=== PATIENT | female | born 1955 | race Caucasian/White ===

== ENCOUNTER 2016-09-05 07:29 | Day surgery (SDC) | payer BC ==
[2016-09-05] MEDS ORDERED: D5 LR 1000 ML 1,000 ML IV ONE (07:46)
[2016-09-05] MEDS ORDERED: ZOFRAN INJ 4 MG VIAL ONE (09:44)
[2016-09-05] MEDS ORDERED: DIPRIVAN VIAL 20 ML ONE (09:44)
[2016-09-05 10:43] VITALS: BP 120/65
== END 2016-09-05 10:31 | disposition home or self-care (01) ==
LOC: SURG1 07:29
PROVIDERS: ATTEND Internal Medicine Gastroenterology
PROC: 0DBP8ZX Excision of Rectum, Via Natural or Artificial Opening Endoscopic, Diagnostic (ICD-10-PCS; principal; 2016-09-05 09:00)
PROC: 0DJD8ZZ Inspection of Lower Intestinal Tract, Via Natural or Artificial Opening Endoscopic (ICD-10-PCS; principal; 2016-09-05 09:00)
PROC: 0DBM8ZX Excision of Descending Colon, Via Natural or Artificial Opening Endoscopic, Diagnostic (ICD-10-PCS; principal; 2016-09-05 09:00)
DX: Z12.11 Encounter for screening for malignant neoplasm of colon (principal); K57.30 Diverticulosis of large intestine without perforation or abscess without bleeding; K64.8 Other hemorrhoids
CPT/HCPCS: A4217; J2405; J3490; J7120

== ENCOUNTER 2021-02-22 14:25 | Observation (INO) ==
[2021-02-22] MEDS ORDERED: TORADOL 30 MG VIAL IVP ONE (14:40)
[2021-02-22] MEDS ORDERED: TYLENOL 500 MG TAB EXTRA STRENGTH PO ONE ×2 (14:41→14:46)
[2021-02-22 14:42] VITALS: BMI 40.0
[2021-02-22] MEDS ORDERED: TORADOL 30 MG VIAL ONE (14:46)
[2021-02-22 15:01] LABS: ABG ALLEN TEST POS; ABG BASE EXCESS -0.3 mmol/L (-2.0-2.0); ABG HCO3 22.1 mmol/L (22-26)
--- NOTE | 2021-02-22 15:24 | DR.DIZZY ---
HPI Time seen Time Seen by Provider: 02/22/21 14:36 Complaint Chief Complaint Doctor Comments: 65 y/o female brought in by EMS for severe weakness. Pt with a h/o recurrent UTIs, last treated about 2 weeks ago. Pt is a poor historian, is weak and confused. Spouse reports pt started to worsen yesterday. developed severe weakness, fell at [employer]. Pt refused transport to the ER yesterday. Spouse got her home to her recliner, pt was unable to get out of it, EMS picked her up out of it today. Pt denies fever, chills. Has aa 103 degree temp on arrival. Admits to generalized weakness. Having urinary difficulties, only going small amounts. Urinated in her recliner today. Denies abdominal pain, nausea or vomiting. No report of diarrhea. Nurses Notes Reviewed Nurses Notes Review: Yes Context Stroke Symptoms: None PMH PMH Past Medical History: Yes Past Medical History Comment: Adult Stills disease, HTN, HLD, DM, recurrent UTIs Surgical History: Unknown Unable to Obtain Due To: Altered mental status Family History Family Medical History Comment: Unavailable Social History Does patient currently use any type of tobacco product: No Does any household member use tobacco: No Do you use any recreational Drugs:: No Travel Risk Coronavirus risk:travel/contact w/high risk person: No Has patient experienced Coronavirus symptoms: Yes Coronavirus symptoms experienced: Fever ROS Review of Systems Constitutional: Weakness Eyes: No Symptoms Reported ENTM: No Symptoms Reported Respiratoy: No Symptoms Reported Cardiovascular: No Symptoms Reported Gastrointestinal/Abdominal: No Symptoms Reported Genitourinary: Frequency Neurological: Weakness and Problems Walking Musculoskeletal: No Symptoms Reported Integumentary: No Symptoms Reported Hematologic/Lymphatic: No Symptoms Reported Endocrine: No Symptoms Reported Psychiatric: No Symptoms Reported PE Vital Signs Vitals: Temperature 97.7 F Pulse Rate 97 Respiratory Rate 12 Blood Pressure 119/63 O2 Sat by Pulse Oximetry 97 General Limitations: Altered Mental Status General Appearance: Alert and In No Apparent Distress Head Head Exam: Normal Inspection, Atraumatic and Normocephalic Eyes Eye exam: Normal Appearance and PERRL ENT ENT Exam: Normal Exam and Mucous Membranes Moist Neck Neck Exam: Normal Inspection and Full ROM; negative Meningismus Chest Chest Inspection: Normal Inspection Respiratory Respiratory Exam: Normal Lung Sounds Bilat; negative Accessory Muscle Use and Respiratory Distress Cardiovascular Cardiovascular Exam: Regular Rate, Normal Rhythm and Normal Heart Sounds Abdominal Exam Abdominal Exam: Normal Inspection, Normal Bowel Sounds and Soft; negative Tenderness, Guarding and Rebound Extremeties Extremities Exam: Normal Inspection; negative Edema Back Back Exam: Normal Inspection; negative (R) CVA Tenderness and (L) CVA Tenderness Neurologic Neurological Exam: Other (Appears a bit confused, gets tired with talking.); negative Motor Sensory Deficit MDM Differential Diagnosis Differential Diagnosis Comment: UTI, urosepsis, dehydration, electrolyte abnormalities COURSE Treatment Treatment: Pt with 103 temp, generalized weakness. W/u initiated. Given IV fluids, po tylenol, IV toradol. 1640 - U/A with TNTC WBCs c/w UTI. Labs are other boykin acceptable. Will treat with IV levaquin, IV fluids, and admit. Discussed with Dr. Kingston, accepts the admission. ROR Labs Reviewed Laboratory Results Reviewed?: Yes Result Diagrams: 02/22/21 15:05 02/22/21 15:05 Laboratory: WBC 10.2 X10^3/uL (3.6-10.0) H 02/22/21 15:05 RBC 3.13 X10^6/uL (3.5-5.4) L 02/22/21 15:05 Hgb 9.2 g/dL (12.0-16.0) L 02/22/21 15:05 Hct 27.4 % (36.0-47.0) L 02/22/21 15:05 MCV 87.5 fL (80.0-100.0) 02/22/21 15:05 MCH 29.3 pg (27.0-34.0) 02/22/21 15:05 MCHC 33.5 g/dL (33.0-35.0) 02/22/21 15:05 RDW 22.8 % (11.6-16.5) H 02/22/21 15:05 Plt Count 286 X10^3/uL (150.0-450.0) 02/22/21 15:05 Plt Count Comment Adequate (ADEQUATE) 02/22/21 15:05 MPV 6.7 fL (7.4-11.0) L 02/22/21 15:05 Neut % (Auto) 83.3 % (42.0-75.0) H 02/22/21 15:05 Lymph % (Auto) 7.3 % (21.0-51.0) L 02/22/21 15:05 [place] % (Auto) 8.3 % (0.0-13.0) 02/22/21 15:05 Eos % (Auto) 0.3 % (0.9-2.9) L 02/22/21 15:05 Baso % (Auto) 0.8 % (0.2-1.0) 02/22/21 15:05 Neut # (Auto) 8.5 x10^3/uL (2.2-4.8) H 02/22/21 15:05 Lymph # (Auto) 0.7 X10^3/uL (1.3-2.9) L 02/22/21 15:05 [place] # (Auto) 0.8 x10^3/uL (0.3-0.8) 02/22/21 15:05 Eos # (Auto) 0.0 x10^3/uL (0.0-0.2) 02/22/21 15:05 Baso # (Auto) 0.1 X10^3/uL (0.0-0.1) 02/22/21 15:05 Absolute Nucleated RBC 0.1 /100WBC 02/22/21 15:05 Plt Morphology Comment Normal (NORMAL) 02/22/21 15:05 RBC Morphology Abnormal (NORMAL) A 02/22/21 15:05 Anisocytosis 2+ A 02/22/21 15:05 Sample Site Rra 02/22/21 14:58 ABG pH 7.490 (7.35-7.45) H 02/22/21 14:58 ABG pCO2 29.0 mmHg (35.0-45.0) L 02/22/21 14:58 ABG pO2 81.0 mmHg (80.0-100.0) 02/22/21 14:58 ABG HCO3 22.1 mmol/L (22-26) 02/22/21 14:58 ABG O2 Saturation 97.0 % (90-100) 02/22/21 14:58 ABG Base Excess -0.3 mmol/L (-2.0-2.0) 02/22/21 14:58 Tomi Test Pos 02/22/21 14:58 A-a Gradient 32.0 mmHg 02/22/21 14:58 FiO2 21.0 02/22/21 14:58 Blood Gas Comments Pt cathryn well eb 02/22/21 14:58 Sodium 131 mmol/L (136-145) L 02/22/21 15:05 Corrected Sodium 133 mmol/L (136-145) L 02/22/21 15:05 Potassium 4.1 mmol/L (3.5-5.1) 02/22/21 15:05 Chloride 95 mmol/L (98-107) L 02/22/21 15:05 Carbon Dioxide 24.0 mmol/L (21-32) 02/22/21 15:05 BUN 22 mg/dL (7-18) H 02/22/21 15:05 Creatinine 1.48 mg/dL (0.55-1.02) H 02/22/21 15:05 Est GFR (MDRD) Af Amer 46 (>60) L 02/22/21 15:05 Est GFR (MDRD) Non-Af 38 (>60) L 02/22/21 15:05 Glucose 167 mg/dL (65-99) H 02/22/21 15:05 Lactic Acid 1.9 mmol/L (0.4-2.0) 02/22/21 14:55 Calcium 8.5 mg/dL (8.5-10.1) 02/22/21 15:05 Corrected Calcium 9.2 mg/dL (8.5-10.1) 02/22/21 15:05 Total Bilirubin 0.50 mg/dL (0.2-1.0) 02/22/21 15:05 AST 14 Units/L (15-37) L 02/22/21 15:05 ALT 19 Units/L (12-78) 02/22/21 15:05 Alkaline Phosphatase 99 Units/L (46-116) 02/22/21 15:05 Creatine Kinase 62 Units/L (26-192) 02/22/21 15:05 CK-MB (CK-2) < 1.0 ng/mL (0-4.0) 02/22/21 15:05 CK/CKMB % Calc 1.6 % (<4) 02/22/21 15:05 Troponin I < 0.02 ng/mL (0-1.5) 02/22/21 15:05 Total Protein 7.7 g/dL (6.4-8.2) 02/22/21 15:05 Albumin 3.1 g/dL (3.4-5.0) L 02/22/21 15:05 Globulin 4.6 g/dL (2.5-4.5) H 02/22/21 15:05 Albumin/Globulin Ratio 0.7 Ratio (1.1-2.1) L 02/22/21 15:05 Lipase 68 Units/L (73-393) L 02/22/21 15:05 Specimen Type Clean catch urine 02/22/21 15:33 Urine Color Straw (YELLOW) 02/22/21 15: Urine Appearance Cloudy (CLEAR) 02/22/21 15:33 Urine pH 5.0 (5.0 - 8.0) 02/22/21 15:33 Ur Specific [place] 1.020 (1.000-1.030) 02/22/21 15:33 Urine Protein 4+ (NEGATIVE) 02/22/21 15:33 Urine Glucose (UA) Negative (NEGATIVE) 02/22/21 15:33 Urine Ketones 1+ (NEGATIVE) 02/22/21 15:33 Urine Occult Blood 4+ (NEGATIVE) 02/22/21 15:33 Urine Nitrite Negative (NEGATIVE) 02/22/21 15:33 Urine Bilirubin Negative (NEGATIVE) 02/22/21 15:33 Urine Urobilinogen Normal (NORMAL) 02/22/21 15:33 Ur Leukocyte Esterase 3+ (NEGATIVE) 02/22/21 15:33 Urine RBC 3-5 /HPF (0-3) A 02/22/21 15:33 Urine WBC Tntc /HPF (0-5) A 02/22/21 15:33 Ur Squamous Epith Cells Few /HPF (NEGATIVE) 02/22/21 15:33 Urine Bacteria 2+ /HPF (NEGATIVE) 02/22/21 15:33 Ur Culture Indicated? Yes/culture set up 02/22/21 15:33 SARS-CoV-2 (PCR) Negative (NEGATIVE) 02/22/21 14:37 Influenza Type A (PCR) Negative (NEGATIVE) 02/22/21 14:37 Influenza Type B (PCR) Negative (NEGATIVE) 02/22/21 14:37 RSV (PCR) Negative (NEGATIVE) 02/22/21 14:37 Other Results Comments: U/A with TNTC WBCs. + mild anemia. Opioid Opioid Risk Tool Total: 0 Total Score Risk Category: Low Risk Copyright: [employer] predicting aberrant behaviors Diagnosis Discharge Problem: Generalized weakness Urinary tract infection Qualifiers: Urinary tract infection type: site unspecified
[2021-02-22 15:27] LABS: BASOPHILS # (AUTO) 0.1 X10^3/uL (0.0-0.1); BASOPHILS % (AUTO) 0.8 % (0.2-1.0); EOSINOPHILS % (AUTO) 0.3 % (0.9-2.9); HEMATOCRIT 27.4 % (36.0-47.0); HEMOGLOBIN 9.2 g/dL (12.0-16.0); LYMPHOCYTES # (AUTO) 0.7 X10^3/uL (1.3-2.9); LYMPHOCYTES % (AUTO) 7.3 % (21.0-51.0); MEAN CORPUSCULAR HEMOGLOBIN 29.3 pg (27.0-34.0); MEAN CORPUSCULAR HGB CONC 33.5 g/dL (33.0-35.0); MEAN CORPUSCULAR VOLUME 87.5 fL (80.0-100.0); MEAN PLATELET VOLUME 6.7 fL (7.4-11.0); MONOCYTES # (AUTO) 0.8 x10^3/uL (0.3-0.8); MONOCYTES % (AUTO) 8.3 % (0.0-13.0); NEUTROPHILS # (AUTO) 8.5 x10^3/uL (2.2-4.8); NEUTROPHILS % (AUTO) 83.3 % (42.0-75.0); PLATELET COUNT 286 X10^3/uL (150.0-450.0); RED BLOOD COUNT 3.13 X10^6/uL (3.5-5.4); RED CELL DISTRIBUTION WIDTH 22.8 % (11.6-16.5); WHITE BLOOD COUNT 10.2 X10^3/uL (3.6-10.0)
[2021-02-22 15:44] LABS: BILIRUBIN,URINE NEGATIVE (NEGATIVE); BLOOD/HEMOGLOBIN,URINE 4+ (NEGATIVE); GLUCOSE, URINE NEGATIVE (NEGATIVE); KETONES,URINE 1+ (NEGATIVE); LEUKOCYTE ESTERASE ,URINE 3+ (NEGATIVE); NITRITES,URINE NEGATIVE (NEGATIVE); PROTEIN,URINE 4+ (NEGATIVE); UROBILINOGEN,URINE NORMAL (NORMAL)
[2021-02-22 15:58] LABS: APPEARANCE,URINE CLOUDY (CLEAR); BACTERIA,URINE 2+ /HPF (NEGATIVE); COLOR,URINE STRAW (YELLOW); SQUAMOUS EPITHELIAL CELL,UR FEW /HPF (NEGATIVE)
[2021-02-22] MEDS ORDERED: LEVAQUIN PREMIX IV 750 MG 750 MG/150 ML BAG IV ONE ×2 (16:42→16:55)
[2021-02-22 16:50] LABS: ALANINE AMINOTRANSFERASE 19 Units/L (12-78); ALBUMIN 3.1 g/dL (3.4-5.0); ALKALINE PHOSPHATASE 99 Units/L (46-116); ASPARTATE AMINO TRANSFERASE 14 Units/L (15-37); BLOOD UREA NITROGEN 22 mg/dL (7-18); CALCIUM 8.5 mg/dL (8.5-10.1); CHLORIDE 95 mmol/L (98-107); CKMB % 1.6 % (<4); COR CA(FOR HYPOALB) 9.2 mg/dL (8.5-10.1); COR NA(FOR HYPERGLY) 133 mmol/L (136-145); CREATINE KINASE 62 Units/L (26-192); CREATINE KINASE MB < 1.0 ng/mL (0-4.0); CREATININE 1.48 mg/dL (0.55-1.02); LIPASE 68 Units/L (73-393); SODIUM 131 mmol/L (136-145); TOTAL PROTEIN 7.7 g/dL (6.4-8.2); TROPONIN I < 0.02 ng/mL (0-1.5); eGFR NON BLACK RACES 38 (>60)
[2021-02-22 17:01] LABS: ANISOCYTOSIS 2+; PLATELET MORPHOLOGY COMMENT NORMAL (NORMAL)
[2021-02-22] MEDS ORDERED: D5 1/2 NS 1000 ML 1,000 ML IV ONE (18:58)
[2021-02-22] MEDS: D5 1/2 NS 1000 ML 1,000 ML IV SCH (19:00)
[2021-02-22] MEDS ORDERED: NEURONTIN TAB 600 MG ONE (20:47)
[2021-02-22] MEDS: NEURONTIN TAB 600 MG PO SCH (20:52)
[2021-02-22] MEDS ORDERED: DULOXETINE 20 MG PO SCH (21:00)
[2021-02-23] MEDS ORDERED: D5 1/2 NS 1000 ML 1,000 ML IV ONE (02:19)
[2021-02-23] MEDS: D5 1/2 NS 1000 ML 1,000 ML IV SCH (02:22)
[2021-02-23 05:44] LABS: ALBUMIN 2.8 g/dL (3.4-5.0); BASOPHILS % (AUTO) 0.3 % (0.2-1.0); CREATININE 1.78 mg/dL (0.55-1.02); EOSINOPHILS % (AUTO) 0.3 % (0.9-2.9); HEMATOCRIT 25.1 % (36.0-47.0); HEMOGLOBIN 8.5 g/dL (12.0-16.0); LYMPHOCYTES # (AUTO) 0.5 X10^3/uL (1.3-2.9); LYMPHOCYTES % (AUTO) 5.9 % (21.0-51.0); MEAN CORPUSCULAR HEMOGLOBIN 29.3 pg (27.0-34.0); MEAN CORPUSCULAR HGB CONC 33.7 g/dL (33.0-35.0); MEAN PLATELET VOLUME 6.9 fL (7.4-11.0); MONOCYTES # (AUTO) 0.7 x10^3/uL (0.3-0.8); MONOCYTES % (AUTO) 9.8 % (0.0-13.0); NEUTROPHILS # (AUTO) 6.4 x10^3/uL (2.2-4.8); NEUTROPHILS % (AUTO) 83.7 % (42.0-75.0); PLATELET COUNT 276 X10^3/uL (150.0-450.0); RED BLOOD COUNT 2.89 X10^6/uL (3.5-5.4); RED CELL DISTRIBUTION WIDTH 22.9 % (11.6-16.5); TOTAL PROTEIN 7.1 g/dL (6.4-8.2); WHITE BLOOD COUNT 7.6 X10^3/uL (3.6-10.0)
[2021-02-23 06:09] LABS: ANISOCYTOSIS 2+; PLATELET MORPHOLOGY COMMENT NORMAL (NORMAL)
[2021-02-23] MEDS ORDERED: LOTENSIN TAB 10 MG ONE (07:05)
[2021-02-23] MEDS ORDERED: LEVAQUIN PREMIX IV 750 MG 750 MG/150 ML BAG IV ONE (07:05)
[2021-02-23] MEDS ORDERED: HYDROCHLOROTHIAZIDE 25 MG TAB ONE (07:05)
[2021-02-23] MEDS ORDERED: ASPIRIN EC 81 MG PO ONE (07:08)
[2021-02-23] MEDS ORDERED: GLUCOPHAGE ONE (07:08)
[2021-02-23] MEDS ORDERED: PriLOSEC PO ONE (07:09)
[2021-02-23 08:11] LABS: MAGNESIUM 1.6 mg/dL (1.7-2.9)
[2021-02-23] MEDS: ASPIRIN EC 81 MG PO SCH (08:12)
[2021-02-23] MEDS: GLUCOPHAGE PO SCH (08:13)
[2021-02-23] MEDS: CYMBALTA PO SCH (08:13)
[2021-02-23] MEDS: PriLOSEC PO SCH (08:14)
[2021-02-23] MEDS: LOTENSIN TAB 10 MG PO SCH (08:14)
[2021-02-23] MEDS ORDERED: NS 1000 ML 1,000 ML ONE (08:15)
[2021-02-23] MEDS: NS 1000 ML 1,000 ML IV SCH ×2 (08:15→22:07)
[2021-02-23 08:17] LABS: HEMOGLOBIN A1C 7.5 %
[2021-02-23] MEDS ORDERED: LEVAQUIN PREMIX IV 750 MG 750 MG/150 ML BAG IV SCH (09:00)
[2021-02-23] MEDS ORDERED: HYDROCHLOROTHIAZIDE 12.5 MG CAP PO SCH (09:00)
[2021-02-23] MEDS ORDERED: ASPIRIN 81 MG PO SCH (09:00)
[2021-02-23] MEDS ORDERED: BENAZEPRIL HYDROCHLOROTHIAZIDE PO SCH (09:00)
--- NOTE | 2021-02-23 09:12 | RAD ---
HISTORYWeakness no chest complaintsSTUDYAP chestCOMPARISONNoneFINDINGSThe heart is not enlarged. There is a retrocardiac density consistent with hiatal hernia. There is an indistinct area of increased pulmonary density over the right apex and upper lobe. The lungs are clear otherwise. No pleural fluid is seen.IMPRESSIONLarge hiatal hernia. The described density in the right upper lobe may be technical artifact or related to airspace process or fibrosis. There is no prior exam currently available for comparison. Follow-up recommended standard PA and lateral views if possible, to confirm or exclude significant abnormality.Electronically signed by: MARIA ESTHER FERNANDES (Feb 23, 2021 09:10:23)
[2021-02-23] MEDS ORDERED: NORCO 5/325 MG TAB ONE (10:07)
[2021-02-23] MEDS: NORCO 5/325 MG TAB PO PRN (10:18)
[2021-02-23] MEDS ORDERED: PREDNISONE TAB 5 MG PO SCH (11:00)
[2021-02-23] MEDS: PATIENT'S HOME MEDICATION PO SCH (11:51)
--- NOTE | 2021-02-23 13:03 | DR.H&P ---
H&P - History & Physical for Day of: H&P Date: 02/22/21 - Chief Complaint Chief Complaint: FEVER, WEAKNESS AND DEHYDRATION. UTI, DIARRHEA - History of Present Illness History of Present Illness: 65 y/o female brought in by EMS for severe weakness. Pt with a h/o recurrent UTIs, last treated about 2 weeks ago. Pt is a poor historian, is weak and confused. Spouse reports pt started to worsen yesterday. developed severe weakness, fell at [facility]. Pt refused transport to the ER yesterday. Spouse got her home to her recliner, pt was unable to get out of it, EMS picked her up out of it today. Pt denies fever, chills. Has aa 103 degree temp on arrival. Admits to generalized weakness. Having urinary difficulties, only going small amounts. Urinated in her recliner today. Denies abdominal pain, nausea or vomiting. No report of diarrhea. - Past Medical History Past Medical History: Diabetes, Dyslipidemia, Hypertension - Past Surgical History Surgical History: , Cholecystectomy, Other - Family History Family Medical History: Hypertension - Social History Does patient currently use any type of tobacco product: No Have you used tobacco products in the last 12 months: No Type of Tobacco Use: None Does any household member use tobacco: No Alcohol Use: None Drug Use: None - Medications Home Medications: No Known Drug Allergies Allergy (Verified 02/22/21 17:11) CONTINUE taking the following medications azelastine 2 spray INTRANASAL BID PRN 02/22/21 [History] benazepril-hydrochlorothiazide 1 tab PO DAILY 02/22/21 [History] glimepiride 2 mg PO BID 02/22/21 [History] metformin 1,000 mg PO QAM 02/22/21 [History] metformin 500 mg PO QHS 02/22/21 [History] prednisone 2 mg PO DAILY 02/22/21 [History] - Review of Systems Constitutional: Fever, Chills, Weakness, Malaise Eyes: No Symptoms Reported ENT: No Symptoms Reported Respiratory: No Symptoms Reported Cardiovascular: Edema Gastrointestinal: Nausea, Vomiting, Abdominal Pain, Diarrhea Genitourinary: Incontinence Musculoskeletal: Back Pain Skin: No Symptoms Reported Neurological: Weakness, Confusion (PREVIOUS CONFUSION WITH FEVER) - Physical Exam Vital Signs: Temperature 99.3 F Pulse Rate [Right Radial] 110 Pulse Rate 105 Respiratory Rate 20 Blood Pressure [Right Arm] 162/67 Blood Pressure 141/65 O2 Sat by Pulse Oximetry 97 Oriented: Normal Eyes: Normal Ear: Normal Nose: Normal Throat: Dry Respiratory: RLL Diminished, LLL Diminished Cardiovascular: Tachycardia, Edema : Normal Auscultation: Bowel Sounds: Normal Palpation: Normal Tenderness: RLQ, LLQ Skin: Decreased Turgur Musculoskeletal: Back:Thoracic, Back:Lumbar Psychiatric: Normal Mood Description: Calm, Anxious Affect: Anxious Speech Pattern: Clear - Assessment/Plan (1) Pyelonephritis Status: Acute Plan: ADMIT, BLOOD AND URINE CULTURE. IV HYDRATION, IV ATBX, PAIN AND NAUSEA CONTROL. SOOD WITH STRICT I&OS. VERIFY HOME MEDICATIONS. CT ABD/ PELVIS (2) Fever Status: Acute (3) Dehydration Status: Acute - Allergies Allergies/Adverse Reactions: Allergies Allergy/AdvReac Type Severity Reaction Status Date / Time No Known Drug Allergies Allergy Verified 02/22/21 17:11
--- NOTE | 2021-02-23 13:41 | CT ---
HISTORYUTI WITH FAILED OUTPATIENT TREATMENTSTUDYCT abdomen pelvis with IV contrastCOMPARISONNoneTECHNIQUEMultiple axial images of the abdomen and pelvis were obtained from the lung bases to the pubic symphysis without the administration of IV contrast. Dose reduction techniques including Automated Exposure Control (AEC) and adjustment of mA and kV were utilized.FINDINGSThe visualized portions of the lung bases suggest mild atelectasis associated with the large paraesophageal hernia.Fatty infiltration of the liver and borderline hepatomegaly. Spleen appears normal in size.Gallbladder is not well distended without obvious abnormality. No biliary ductal dilation.No pancreatic abnormality is seen.The adrenal glands appear normal.Mild perinephric streaky densities are seen, right greater than left. There is slight indistinctness of the lower pole of the right kidney which could be from pyelonephritis but may be due to mottle artifact. No nephrolithiasis or hydronephrosis is seen. No suggestion of an abscess is seen. Phleboliths are seen in the pelvis. No ureteral dilation is seen. Bladder is decompressed with a Kinsey catheter and not evaluated.Mild sigmoid and descending colon diverticula are seen without evidence of diverticulitis. No suggestion of colitis or constipation. There is a moderate to large paraesophageal hernia. Mild jejunitis is not excluded. No evidence of bowel obstruction. Normal appendix is seen.No adnexal masses are seen.Abdominal aorta is normal in size.Shotty reactive mesenteric and retroperitoneal lymph nodes are seen.No free intraperitoneal air or fluid is seen.No pars defect is seen but there is mild anterolisthesis of L4 on L5. There is large central disc extrusion or protrusion at L4-5 with prominent thecal sac effacement and probable compression of the L5 nerve roots in the lateral recesses.IMPRESSIONPossible mild changes of pyelonephritis in the right kidney. No obstruction is seen.Moderate to large-sized paraesophageal hernia is seen.Mild jejunitis changes are not excluded.Large central disc extrusion or protrusion at L4-5 likely causes prominent thecal sac effacement and prominent lateral recess stenosis.Electronically signed by: Noah Yoder (Feb 23, 2021 13:38:35)
[2021-02-23] MEDS: ZOFRAN INJ 4 MG VIAL IVP PRN ×2 (15:10→20:43)
[2021-02-23] MEDS: NEURONTIN TAB 600 MG PO SCH (20:42)
[2021-02-23] MEDS: MAGNESIUM SULFATE 1 GRAM/100 mL PREMIX 1 G/100 ML BAG IV PRN ×2 (22:09→23:10)
[2021-02-24] MEDS: NORCO 5/325 MG TAB PO PRN (06:27)
[2021-02-24 06:35] LABS: BASOPHILS % (AUTO) 0.5 % (0.2-1.0); EOSINOPHILS # (AUTO) 0.1 x10^3/uL (0.0-0.2); EOSINOPHILS % (AUTO) 1.4 % (0.9-2.9); HEMOGLOBIN 8.4 g/dL (12.0-16.0); LYMPHOCYTES # (AUTO) 0.6 X10^3/uL (1.3-2.9); LYMPHOCYTES % (AUTO) 8.6 % (21.0-51.0); MEAN CORPUSCULAR HEMOGLOBIN 29.4 pg (27.0-34.0); MEAN CORPUSCULAR HGB CONC 33.5 g/dL (33.0-35.0); MEAN CORPUSCULAR VOLUME 87.7 fL (80.0-100.0); MEAN PLATELET VOLUME 7.1 fL (7.4-11.0); MONOCYTES # (AUTO) 1.2 x10^3/uL (0.3-0.8); MONOCYTES % (AUTO) 16.1 % (0.0-13.0); NEUTROPHILS # (AUTO) 5.4 x10^3/uL (2.2-4.8); NEUTROPHILS % (AUTO) 73.4 % (42.0-75.0); PLATELET COUNT 305 X10^3/uL (150.0-450.0); RED BLOOD COUNT 2.85 X10^6/uL (3.5-5.4); RED CELL DISTRIBUTION WIDTH 23.7 % (11.6-16.5); WHITE BLOOD COUNT 7.3 X10^3/uL (3.6-10.0)
[2021-02-24 06:47] LABS: ALBUMIN 2.6 g/dL (3.4-5.0); CALCIUM 8.4 mg/dL (8.5-10.1); CARBON DIOXIDE 22.4 mmol/L (21-32); COR CA(FOR HYPOALB) 9.5 mg/dL (8.5-10.1); CREATININE 1.28 mg/dL (0.55-1.02); MAGNESIUM 1.9 mg/dL (1.7-2.9); TOTAL PROTEIN 6.9 g/dL (6.4-8.2)
[2021-02-24 07:21] LABS: ANISOCYTOSIS 2+; PLATELET MORPHOLOGY COMMENT NORMAL (NORMAL)
[2021-02-24] MEDS ORDERED: GLUCOPHAGE ONE (09:16)
[2021-02-24] MEDS: ASPIRIN EC 81 MG PO SCH (09:35)
[2021-02-24] MEDS: CYMBALTA PO SCH (09:45)
[2021-02-24] MEDS: GLUCOPHAGE PO SCH (09:46)
[2021-02-24] MEDS: PriLOSEC PO SCH (09:46)
[2021-02-24] MEDS: LOTENSIN TAB 10 MG PO SCH (09:46)
[2021-02-24] MEDS: PATIENT'S HOME MEDICATION PO SCH (10:25)
[2021-02-24] MEDS: NS 1000 ML 1,000 ML IV SCH (12:11)
[2021-02-24] MEDS: ZOFRAN INJ 4 MG VIAL IVP PRN (14:44)
--- NOTE | 2021-02-24 16:14 | PCM.PROG ---
Progress Note Progress Note for Day of Date of Exam: 02/24/21 Subjective Subjective: Feeling better overall. Past Medical Family Social History Past Med/Fam/Surg Hx: No changes since H&P Allergies: Allergies No Known Drug Allergies Allergy (Verified 02/22/21 17:11) Review of Systems ROS: No change since H&P Vital Signs and I&O's Vital Signs: Temperature 97.7 F Pulse Rate [Right Radial] 110 Pulse Rate 76 Respiratory Rate 20 Blood Pressure [Right Arm] 162/67 Blood Pressure 119/55 O2 Sat by Pulse Oximetry 94 Intake and Output: Intake & Output 02/22/21 02/23/21 02/24/21 02/25/21 11:59 11:59 11:59 11:59 Intake Total 1670 / 1670 1981 / 1981 Output Total 550 / 550 1325 / 1325 Balance 1120 / 1120 657 / 657 Physical Exam Oriented: Normal Eyes: Normal Throat: Normal Respiratory: Normal Cardiovascular: Normal and Edema Auscultation: Bowel Sounds: Normal Tenderness: RLQ and LLQ Skin: Decreased Turgur Musculoskeletal: Back:Thoracic and Back:Lumbar Psychiatric: Normal Mood Description: Calm and Anxious Affect: Anxious Speech Pattern: Clear and Appropriate Laboratory and Diagnostics Result Diagrams: 02/24/21 05:18 02/24/21 05:18 Labs: 02/22/21 15:05 Blood Blood Culture - Preliminary 02/22/21 14:55 Blood Blood Culture - Preliminary 02/22/21 15:33 Urine,Clean Catch Urine Culture - Preliminary Laboratory WBC 7.3 X10^3/uL (3.6-10.0) 02/24/21 05:18 RBC 2.85 X10^6/uL (3.5-5.4) L 02/24/21 05:18 Hgb 8.4 g/dL (12.0-16.0) L 02/24/21 05:18 Hct 25.0 % (36.0-47.0) L 02/24/21 05:18 MCV 87.7 fL (80.0-100.0) 02/24/21 05:18 MCH 29.4 pg (27.0-34.0) 02/24/21 05:18 MCHC 33.5 g/dL (33.0-35.0) 02/24/21 05:18 RDW 23.7 % (11.6-16.5) H 02/24/21 05:18 Plt Count 305 X10^3/uL (150.0-450.0) 02/24/21 05:18 Plt Count Comment Adequate (ADEQUATE) 02/24/21 05:18 MPV 7.1 fL (7.4-11.0) L 02/24/21 05:18 Neut % (Auto) 73.4 % (42.0-75.0) 02/24/21 05:18 Lymph % (Auto) 8.6 % (21.0-51.0) L 02/24/21 05:18 [place] % (Auto) 16.1 % (0.0-13.0) H 02/24/21 05:18 Eos % (Auto) 1.4 % (0.9-2.9) 02/24/21 05:18 Baso % (Auto) 0.5 % (0.2-1.0) 02/24/21 05:18 Neut # (Auto) 5.4 x10^3/uL (2.2-4.8) H 02/24/21 05:18 Lymph # (Auto) 0.6 X10^3/uL (1.3-2.9) L 02/24/21 05:18 [place] # (Auto) 1.2 x10^3/uL (0.3-0.8) H 02/24/21 05:18 Eos # (Auto) 0.1 x10^3/uL (0.0-0.2) 02/24/21 05:18 Baso # (Auto) 0.0 X10^3/uL (0.0-0.1) 02/24/21 05:18 Absolute Nucleated RBC 0.1 /100WBC 02/24/21 05:18 Plt Morphology Comment Normal (NORMAL) 02/24/21 05:18 RBC Morphology Abnormal (NORMAL) A 02/24/21 05:18 Anisocytosis 2+ A 02/24/21 05:18 Sample Site Rra 02/22/21 14:58 ABG pH 7.490 (7.35-7.45) H 02/22/21 14:58 ABG pCO2 29.0 mmHg (35.0-45.0) L 02/22/21 14:58 ABG pO2 81.0 mmHg (80.0-100.0) 02/22/21 14:58 ABG HCO3 22.1 mmol/L (22-26) 02/22/21 14:58 ABG O2 Saturation 97.0 % (90-100) 02/22/21 14:58 ABG Base Excess -0.3 mmol/L (-2.0-2.0) 02/22/21 14:58 Tomi Test Pos 02/22/21 14:58 A-a Gradient 32.0 mmHg 02/22/21 14:58 FiO2 21.0 02/22/21 14:58 Blood Gas Comments Pt cathryn well eb 02/22/21 14:58 Sodium 132 mmol/L (136-145) L 02/24/21 05:18 Corrected Sodium 132 mmol/L (136-145) L 02/24/21 05:18 Potassium 3.7 mmol/L (3.5-5.1) 02/24/21 05:18 Chloride 98 mmol/L (98-107) 02/24/21 05:18 Carbon Dioxide 22.4 mmol/L (21-32) 02/24/21 05:18 BUN 17 mg/dL (7-18) 02/24/21 05:18 Creatinine 1.28 mg/dL (0.55-1.02) H 02/24/21 05:18 Est GFR (MDRD) Af Amer 54 (>60) L 02/24/21 05:18 Est GFR (MDRD) Non-Af 45 (>60) L 02/24/21 05:18 Glucose 112 mg/dL (65-99) H 02/24/21 05:18 POC Glucose (mg/dL) 149 mg/dL (65-99) H 02/24/21 15:46 Hemoglobin A1c 7.5 % 02/23/21 05:11 Lactic Acid 1.9 mmol/L (0.4-2.0) 02/22/21 14:55 Calcium 8.4 mg/dL (8.5-10.1) L 02/24/21 05:18 Corrected Calcium 9.5 mg/dL (8.5-10.1) 02/24/21 05:18 Magnesium 1.9 mg/dL (1.7-2.9) 02/24/21 05:18 Iron 8 ug/dL (50-175) L 02/23/21 05:11 Transferrin 247 mg/dL (202-364) 02/23/21 05:11 Ferritin 147 ng/mL (8-252) 02/23/21 05:11 Total Bilirubin 0.30 mg/dL (0.2-1.0) 02/24/21 05:18 AST 40 Units/L (15-37) H 02/24/21 05:18 ALT 27 Units/L (12-78) 02/24/21 05:18 Alkaline Phosphatase 82 Units/L (46-116) 02/24/21 05:18 Creatine Kinase 62 Units/L (26-192) 02/22/21 15:05 CK-MB (CK-2) < 1.0 ng/mL (0-4.0) 02/22/21 15:05 CK/CKMB % Calc 1.6 % (<4) 02/22/21 15:05 Troponin I < 0.02 ng/mL (0-1.5) 02/22/21 15:05 Total Protein 6.9 g/dL (6.4-8.2) 02/24/21 05:18 Albumin 2.6 g/dL (3.4-5.0) L 02/24/21 05:18 Globulin 4.3 g/dL (2.5-4.5) 02/24/21 05:18 Albumin/Globulin Ratio 0.6 Ratio (1.1-2.1) L 02/24/21 05:18 Lipase 68 Units/L (73-393) L 02/22/21 15:05 Vitamin B12 438 pg/mL (193-986) 02/23/21 05:11 Folate 17.8 ng/mL (>8.6) 02/23/21 05:11 Specimen Type Clean catch urine 02/22/21 15:33 Urine Color Straw (YELLOW) 02/22/21 15:33 Urine Appearance Cloudy (CLEAR) 02/22/21 15:33 Urine pH 5.0 (5.0 - 8.0) 02/22/21 15:33 Ur Specific [place] 1.020 (1.000-1.030) 02/22/21 15:33 Urine Protein 4+ (NEGATIVE) 02/22/21 15:33 Urine Glucose (UA) Negative (NEGATIVE) 02/22/21 15:33 Urine Ketones 1+ (NEGATIVE) 02/22/21 15:33 Urine Occult Blood 4+ (NEGATIVE) 02/22/21 15:33 Urine Nitrite Negative (NEGATIVE) 02/22/21 15:33 Urine Bilirubin Negative (NEGATIVE) 02/22/21 15:33 Urine Urobilinogen Normal (NORMAL) 02/22/21 15:33 Ur Leukocyte Esterase 3+ (NEGATIVE) 02/22/21 15:33 Urine RBC 3-5 /HPF (0-3) A 02/22/21 15:33 Urine WBC Tntc /HPF (0-5) A 02/22/21 15:33 Ur Squamous Epith Cells Few /HPF (NEGATIVE) 02/22/21 15:33 Urine Bacteria 2+ /HPF (NEGATIVE) 02/22/21 15:33 Ur Culture Indicated? Yes/culture set up 02/22/21 15:33 SARS-CoV-2 (PCR) Negative (NEGATIVE) 02/22/21 14:37 Influenza Type A (PCR) Negative (NEGATIVE) 02/22/21 14:37 Influenza Type B (PCR) Negative (NEGATIVE) 02/22/21 14:37 RSV (PCR) Negative (NEGATIVE) 02/22/21 14:37 Radiology Reviewed: Yes Plan (1) Anemia: Status: Acute Plan: Check anemia profile. (2) Pyelonephritis: Status: Acute Plan: Continue IV Levaquin. (3) Fever: Status: Acute (4) Dehydration: Status: Acute Plan: Continue IV hydration.
[2021-02-24] MEDS: NEURONTIN TAB 600 MG PO SCH (20:42)
[2021-02-25] MEDS: NS 1000 ML 1,000 ML IV SCH (02:22)
[2021-02-25 06:50] LABS: BASOPHILS # (AUTO) 0.1 X10^3/uL (0.0-0.1); BASOPHILS % (AUTO) 0.7 % (0.2-1.0); EOSINOPHILS # (AUTO) 0.3 x10^3/uL (0.0-0.2); EOSINOPHILS % (AUTO) 3.6 % (0.9-2.9); HEMATOCRIT 25.8 % (36.0-47.0); HEMOGLOBIN 8.6 g/dL (12.0-16.0); LYMPHOCYTES % (AUTO) 12.7 % (21.0-51.0); MEAN CORPUSCULAR HEMOGLOBIN 29.4 pg (27.0-34.0); MEAN CORPUSCULAR HGB CONC 33.2 g/dL (33.0-35.0); MEAN CORPUSCULAR VOLUME 88.5 fL (80.0-100.0); MEAN PLATELET VOLUME 7.2 fL (7.4-11.0); MONOCYTES # (AUTO) 1.1 x10^3/uL (0.3-0.8); MONOCYTES % (AUTO) 14.9 % (0.0-13.0); NEUTROPHILS # (AUTO) 5.3 x10^3/uL (2.2-4.8); NEUTROPHILS % (AUTO) 68.1 % (42.0-75.0); PLATELET COUNT 359 X10^3/uL (150.0-450.0); RED BLOOD COUNT 2.92 X10^6/uL (3.5-5.4); RED CELL DISTRIBUTION WIDTH 22.5 % (11.6-16.5); WHITE BLOOD COUNT 7.7 X10^3/uL (3.6-10.0)
[2021-02-25 07:07] LABS: ALANINE AMINOTRANSFERASE 30 Units/L (12-78); ALBUMIN 2.8 g/dL (3.4-5.0); ALKALINE PHOSPHATASE 88 Units/L (46-116); ASPARTATE AMINO TRANSFERASE 35 Units/L (15-37); BLOOD UREA NITROGEN 15 mg/dL (7-18); CALCIUM 8.4 mg/dL (8.5-10.1); CARBON DIOXIDE 24.3 mmol/L (21-32); CHLORIDE 100 mmol/L (98-107); COR CA(FOR HYPOALB) 9.4 mg/dL (8.5-10.1); COR NA(FOR HYPERGLY) 136 mmol/L (136-145); CREATININE 1.16 mg/dL (0.55-1.02); MAGNESIUM 1.6 mg/dL (1.7-2.9); SODIUM 135 mmol/L (136-145); TOTAL PROTEIN 7.2 g/dL (6.4-8.2); eGFR NON BLACK RACES 50 (>60)
[2021-02-25 07:58] LABS: PLATELET MORPHOLOGY COMMENT NORMAL (NORMAL)
[2021-02-25 07:59] LABS: ANISOCYTOSIS 1+
[2021-02-25 08:35] VITALS: BP 150/69
[2021-02-25] MEDS ORDERED: GLUCOPHAGE ONE (08:37)
[2021-02-25] MEDS: ASPIRIN EC 81 MG PO SCH (08:51)
[2021-02-25] MEDS: LOTENSIN TAB 10 MG PO SCH (08:52)
[2021-02-25] MEDS: CYMBALTA PO SCH (08:52)
[2021-02-25] MEDS: PriLOSEC PO SCH (08:52)
[2021-02-25] MEDS: PATIENT'S HOME MEDICATION PO SCH (08:52)
[2021-02-25] MEDS: GLUCOPHAGE PO SCH (08:52)
[2021-02-25] MEDS ORDERED: MILK OF MAGNESIA PO SCH (09:00)
[2021-02-25] MEDS ORDERED: LEVAQUIN PREMIX IV 750 MG 750 MG/150 ML BAG IV SCH (11:00)
== END 2021-02-25 10:00 | disposition home or self-care (01) ==
LOC: ER 14:25 → U 14:25 → MED/SURG 02-23 13:36
PROVIDERS: ADMIT Internal Medicine; ATTEND Internal Medicine
DX: N10 Acute pyelonephritis; R51.9 Headache, unspecified; B96.29 Other Escherichia coli [E. coli] as the cause of diseases classified elsewhere; R26.89 Other abnormalities of gait and mobility; E87.1 Hypo-osmolality and hyponatremia; R79.89 Other specified abnormal findings of blood chemistry; Z20.822 Contact with and (suspected) exposure to COVID-19; W18.39XA Other fall on same level, initial encounter; K44.9 Diaphragmatic hernia without obstruction or gangrene; Z87.440 Personal history of urinary (tract) infections; D64.89 Other specified anemias; E78.2 Mixed hyperlipidemia; I10 Essential (primary) hypertension; N28.9 Disorder of kidney and ureter, unspecified; E86.0 Dehydration; E11.65 Type 2 diabetes mellitus with hyperglycemia